=== PATIENT | female | born 1935 | race Caucasian/White ===

== ENCOUNTER → 2017-05-29 | Outpatient (CLI) | payer MEDICARE ==
[~2017-05-29] MED LIST: ALPR0.25 PO; ASCO10004 PO; ASPI-621 PO; ATOR40TA PO; ATOR40TA78 PO; CHLO25TA PO; CHOL400T10 PO; CLOP75TA PO; COFF400C PO; ISOS60TA36 PO; LANS30CA PO; LISI-170 PO; LISI40TA PO; MAGN400T36 PO; METO-93 PO; NAPR1TAB25 PO; NITR0.4T SL; OMEP-110 PO; PANT40TA3 PO; PARO20TA4 PO; PARO20TA55 PO; POTA20PA PO; PRAS10TA4 PO; SERT50TA5 PO; SUCR1ORA2 PO; TICA90TA PO; [UNRECOGNIZED DRUG - OTHER] PO
== END | disposition home or self-care (01) ==
LOC: CFH 10:36
PROVIDERS: ATTEND Internal Medicine Cardiovascular Disease
DX: I25.10 Atherosclerotic heart disease of native coronary artery without angina pectoris (principal); I08.1 Rheumatic disorders of both mitral and tricuspid valves; I10 Essential (primary) hypertension; I25.2 Old myocardial infarction; Z95.5 Presence of coronary angioplasty implant and graft
CPT/HCPCS: 93306

== ENCOUNTER → 2018-06-17 | Outpatient (CLI) | payer MEDICARE ==
[~2018-06-17] MED LIST changes: -PARO20TA55 PO; +PARO20TA98 PO; +REGADENOSON 0.4 MG/5 ML SYRINGE ONE; -SUCR1ORA2 PO; +SUCR1ORA5 PO
== END | disposition home or self-care (01) ==
LOC: CFH 08:22
PROVIDERS: ATTEND Internal Medicine Cardiovascular Disease
DX: I25.9 Chronic ischemic heart disease, unspecified (principal); I21.09 ST elevation (STEMI) myocardial infarction involving other coronary artery of anterior wall; I08.1 Rheumatic disorders of both mitral and tricuspid valves; I10 Essential (primary) hypertension; E11.9 Type 2 diabetes mellitus without complications; E78.5 Hyperlipidemia, unspecified; I27.20 Pulmonary hypertension, unspecified; I25.5 Ischemic cardiomyopathy
CPT/HCPCS: 78452; 93017; 93306; A9502; J2785